=== PATIENT | male | born 1980 | race Caucasian/White ===

== ENCOUNTER 2024-01-29 16:17 | Emergency (ER) | payer OTHER, SELFPAY ==
[2024-01-29 16:23] VITALS: BP 174/115
[2024-01-29 16:58] VITALS: BMI 58.2
[2024-01-29 18:00] VITALS: BP 142/83
--- NOTE | 2024-01-29 18:25 | ED.GENMED ---
History of Present Illness
General
Chief Complaint: Rectal Bleeding
Time Seen by Provider: 01/29/24 18:09
Travel History
Have you had any contact with someone who has COVID-19?: No
Do you have any symptoms of coronavirus? Fever > 100 degrees, chills, cough, shortness of breath, sore throat, loss of taste or smell, muscle aches, or headache?: No
History of Present Illness
History of Present Illness:
43-year-old male with history of hypertension and [id number] diabetes presents the emergency department for evaluation of persistent rectal bleeding as well as rectal/perineal/scrotal pain. Patient states he has had 'internal
hemorrhoids' for over 1 year, has frequent rectal bleeding. He informs me that he scheduled a follow-up appointment with colorectal surgery outside of [facility] and has an upcoming appointment in approximately 2 weeks. Bleeding does not
occur every day. Today he began to feel chills as well as significant perineal discomfort and thus came to the emergency department for evaluation.
Past History
Past History
ED Past Medical History: None
Social History
Tobacco: Smoker
Personal: Single
Review of Systems
Review of Systems
Allergies reviewed?: Yes
All Other Systems: ROS reviewed and negative except as documented in HPI and ROS
Phy Exam
Physical Exam
Physical Exam:
GEN: Well appearing, NAD, WDWN
HEENT: Oral mucosa moist, no scleral icterus
Cardiac: Regular rate
Lung: No respiratory distress, no tachypnea
Abdomen: Obesity limits exam, no tenderness
Rectal: Nonthrombosed, nonbleeding external hemorrhoids visualized. No anal fissures. No palpable rectal masses. Prostate is of normal size with no bogginess although patient does have significant tenderness on exam
MSK: No gross deformity or injuries
Skin: Good color, no pallor or jaundice, no rashes
Neuro: AO x3, moves all extremities freely
Psych: Calm, cooperative
Course
Orders/Labs/Results
Orders:
Orders
01/29/24 18:25
CT Pelvis With Iv Contrast Urgent
Comment:
Reason For Exam: rectal/perineal pain
01/29/24 18:35
Basic Metabolic Panel Urgent
Complete Blood Count/With Diff Urgent
01/29/24 18:53
Morphine Sulfate 4 mg .ROUTE .STK-MED ONE
Morphine Sulfate 4 mg IV NOW STA
01/29/24 19:58
Urinalysis Reflex To Culture Urgent
Date Specimen was Collected: 01/29/24
Time Specimen was Collected: 19:56
Urine Microscopic Reflex Cult Urgent
01/29/24 22:09
Anusol Hc Suppository [Anusol Hc] 25 mg RECTAL NOW STA
Abnormal Lab Results
01/29/24 01/29/24
18:35 19:58
RBC 3.91 L 10^6/uL
(4.70-6.10)
Hgb 11.7 L g/dL
(13.0-18.0)
Hct 32.9 L %
(39.0-52.0)
Abs Immat Gran (auto) 0.1 H 10^3/uL
(0-0.05)
Absolute Neuts (auto) 7.0 H 10^3/uL
(1.4-6.5)
Immature Gran % 0.7 H %
(0-0.5)
Lymphocytes % 17.0 L %
(20.5-51.1)
Sodium 132 L mmol/L
(135-145)
Leukocyte Esterase Rfl Trace A
(Negative)
Urine Bacteria (Reflex) Few A
(Negative)
01/29/24 18:35
01/29/24 18:35
Vital Signs
Initial and Last Documented VS:
Initial Vital Signs
Temp Pulse Resp BP Pulse Ox
98.4 F 93 17 174/115 99
01/29/24 16:23 01/29/24 16:23 01/29/24 16:23 01/29/24 16:23 01/29/24 16:23
Last Documented Vital Signs
Temp Pulse Resp BP Pulse Ox
98.3 F 70 18 131/80 98
01/29/24 21:00 01/29/24 21:00 01/29/24 21:00 01/29/24 21:00 01/29/24 21:00
MDM/Problems Addressed
MDM/Problems Addressed:
Labs and imaging were pursued as the patient's reports of pain and systemic symptoms are out of proportion to exam findings which is really quite unremarkable. Additionally he is not expected to have significant pain associated with internal
hemorrhoids. Fortunately his imaging and labs were grossly unremarkable. Will treat with Anusol suppositories, patient has scheduled follow-up with colorectal surgery as an outpatient
*Critical Care Note
Total Time (30-74mins, 75-104mins- exclusive of procedures): Not Applicable
ED Attending Note
-
Portions of this chart may have been created with voice recognition software.� Occasional wrong word or��sound alike� substitutions may have occurred due to the inherent limitations of voice recognition software.
Discharge Plan
Departure
Patient Disposition: Home (Routine Discharge)
Date of Disposition: 01/29/24
Time of Disposition: 21:53
Patient with high blood pressure during this ER visit?: Yes
Discharge Problem:
Bleeding hemorrhoids
Instructions: Hemorrhoids (DC)
Prescriptions:
New
hydrocortisone acetate [Anusol-HC] 25 mg suppository
25 mg [place] DAILY Qty: 12 0RF
No Action
No Meds [No Current Medications]
0
sulfamethoxazole-trimethoprim 800 MG/160 MG tablet
1 tab PO BID Qty: 20 0RF
cephalexin 500 MG capsule
500 mg PO QID Qty: 40 0RF
ofloxacin 1 DROP drops
1 drp ophthalmic (eye) QID Qty: 5 0RF
cefdinir 300 mg capsule
300 mg PO BID 4 Days Qty: 8 0RF
azithromycin [Zithromax] 250 mg tablet
250 mg PO DAILY 4 Days Qty: 4 0RF
ipratropium-albuterol 0.5 mg-3 mg(2.5 mg base)/3 mL solution for nebulization
3 ml inhalation QID PRN (Reason: shortness of breath or wheezing) Qty: 90 0RF
methylprednisolone [Medrol (Ben)] 4 mg tablets,dose pack
See Rx Instructions .ROUTE .COMPLEX Qty: 21 0RF
Rx Instructions:
orally per package directions
cyclobenzaprine 10 mg tablet
10 mg PO Q8H Qty: 10 0RF
meloxicam 15 mg tablet
15 mg PO DAILY Qty: 10 0RF
Referrals:
Lucius Alves MD [Family Provider] -
Activity Restrictions/Additional Instructions:
Your CT scan showed no abnormalities and your urinalysis is negative for infection. Your hemoglobin is not significantly decreased. Please continue to follow-up with colorectal surgery as discussed
Interventions
Interventions:
*Risk Screen - Suicide Last Done: 01/29/24 17:00
*General Assessment Last Done: 01/29/24 22:47
*Neglect/Abuse Screening Last Done: 01/29/24 17:00
ED- Fall Risk Assessment Last Done: 01/29/24 17:00
*ED COVID-19 Vaccine History Last Done: 01/29/24 17:00
*Nursing Disposition Last Done: 01/29/24 22:47
NC-Onctwn-Tmudluhvkr Assessment Last Done: 01/29/24 17:00
ED- Cardiac Assessment Last Done: 01/29/24 17:00
ED- Pulmonary Assessment Last Done: 01/29/24 17:00
Discharge Date and Time
Discharge Date/Time: 01/29/24 22:48
[2024-01-29] MEDS: MORPHINE SULFATE 4 MG IV (18:54)
[2024-01-29 18:55] LABS: % Basophils 0.3 % (0-2); % Eosinophils 2.6 % (0-6); % Immature Granulocytes 0.7 % (0-0.5); % Monocytes 4.8 % (1.7-9.3); % Neutrophils 74.6 % (42.2-75.2); Absolute Eosinophils 0.2 10^3/uL (0-0.7); Absolute Immature Granulocytes 0.1 10^3/uL (0-0.05); Absolute Lymphocytes 1.6 10^3/uL (1.2-3.4); Absolute Monocytes 0.5 10^3/uL (0.1-0.6); Hematocrit 32.9 % (39.0-52.0); Hemoglobin 11.7 g/dL (13.0-18.0); Mean Corp Hgb Conc. 35.6 g/dL (33.0-37.0); Mean Corpuscular Hgb 29.9 pg (27.0-31.0); Mean Corpuscular Volume 84.1 fL (80.0-94.0); Mean Platelet Volume 9.1 fL (7.4-10.4); Nucleated Red Blood Cells % 0 % (-); Platelet Count 288 10^3/uL (130-400); Red Blood Cell Count 3.91 10^6/uL (4.70-6.10); Red Cell Dist. Width 13.4 % (11.5-14.5); White Blood Cell Count 9.4 10^3/uL (4.8-10.8)
[2024-01-29 19:11] LABS: Blood Urea Nitrogen 16 mg/dl (9-20); Calcium 9.2 mg/dl (8.4-10.2); Carbon Dioxide 24 mmol/L (22-30); Chloride 101 mmol/L (98-107); Estimated Creatinine Clearance > 125 ml/min; Glucose 90 mg/dl (70-99); Potassium 4.7 mmol/L (3.5-5.1); Sodium 132 mmol/L (135-145); eGFR > 60.00
[2024-01-29 20:05] LABS: Urine Albumin Negative (Neg - Trace); Urine Bilirubin Negative (Negative); Urine Character Clear (Clear); Urine Color Yellow; Urine Glucose Negative (Negative); Urine Ketone Negative (Negative); Urine Leukocyte Trace (Negative); Urine Nitrite Negative (Negative); Urine Occult Blood Negative (Negative); Urine Specific Gravity 1.015 (<1.030); Urine Urobilinogen Negative (Neg - 1+)
[2024-01-29 20:06] VITALS: BP 139/71
[2024-01-29 20:27] LABS: Urine Bacteria Few (Negative); Urine Red Blood Cell 0-2 /HPF (0-2); Urine Urothelial Cell 16-20 /LPF (FEW); Urine White Cell 0-2 /HPF (0-5)
[2024-01-29 21:00] VITALS: BP 131/80
[2024-01-29] MEDS: ANUSOL HC 25 MG RECTAL (22:27)
== END 2024-01-29 22:48 | disposition home or self-care (01) ==
LOC: EMR 16:17
PROVIDERS: Physician Assistant; EMERGENCY PHYSICIAN Emergency Medicine; FAMILY PHYSICIAN Family Medicine
DX: K62.5 Hemorrhage of anus and rectum (principal); K64.4 Residual hemorrhoidal skin tags; R68.83 Chills (without fever); R10.2 Pelvic and perineal pain; N50.82 Scrotal pain; I10 Essential (primary) hypertension; E11.9 Type 2 diabetes mellitus without complications; F17.200 Nicotine dependence, unspecified, uncomplicated
CPT/HCPCS: 99285; 96374; 72193; 80048; 81003; 81015; 85025; Q9967